=== PATIENT | female | born 1975 | race Caucasian/White ===

== ENCOUNTER 2018-05-31 01:42 | Inpatient (IN) | payer OTHER ==
[2018-05-31] MEDS ORDERED: NACL 0.9% 3 ML SYG IV (02:30)
[2018-05-31] MEDS ORDERED: ONDANSETRON 4 MG INJ IV ×2 (02:30→13:30)
[2018-05-31] MEDS: DEXTROSE 5%-0.45% NACL 1,000 ML IV ×3 (02:58→18:58)
[2018-05-31] MEDS: CEPASTAT LOZENGE MT ×2 (03:15→20:11)
[2018-05-31 05:34] LABS: BASOPHILS % 0.5 % (0.0-2.0); EOSINOPHILS % 0.3 % (0.0-7.0); HEMATOCRIT 37.1 % (37.0-47.0); HEMOGLOBIN 12.2 g/dl (12.0-16.0); LYMPHOCYTES % 15.9 % (15.0-51.0); MEAN CORPUSCULAR HEMOGLOBIN 28.8 pg (29.0-33.0); MEAN CORPUSCULAR HGB CONC 32.9 g/dl (32.0-37.0); MEAN CORPUSCULAR VOLUME 87.5 fl (82.0-101.0); MEAN PLATELET VOLUME 10.7 fl (7.4-10.4); MONOCYTE # 0.8 10^3/ul (0.3-0.9); MONOCYTES % 11.9 % (0.0-11.0); NEUTROPHIL # 4.6 10^3/ul (1.6-7.5); NEUTROPHILS % 70.6 % (39.0-77.0); PLATELET COUNT 201 10^3/UL (140-415); RED BLOOD COUNT 4.24 10^6/ul (4.20-5.40); RED CELL DISTRIBUTION WIDTH 13.1 % (11.5-14.5)
[2018-05-31 05:34] LABS: WHITE BLOOD COUNT 6.5 10^3/ul (4.8-10.8)
[2018-05-31 05:35] LABS: ADD MAN DIFF? NO
[2018-05-31 06:06] LABS: ALANINE AMINOTRANSFERASE 26 IU/L (13-69); ALBUMIN 3.7 g/dl (3.3-4.9); ALBUMIN/GLOBULIN RATIO 1.27; ALKALINE PHOSPHATASE 51 IU/L (42-121); ANION GAP 9 (5-13); ASPARTATE AMINO TRANSFERASE 22 IU/L (15-46); BILIRUBIN,INDIRECT 0.2 mg/dl (0-1.1); BILIRUBIN,TOTAL 0.2 mg/dl (0.2-1.3); BLOOD UREA NITROGEN 7 mg/dl (7-20); CALCIUM 8.4 mg/dl (8.4-10.2); CARBON DIOXIDE 27 mmol/L (21-31); CHLORIDE 102 mmol/L (97-110); CREATININE 0.55 mg/dl (0.44-1.00); Estimated GFR > 60 mL/min (>60); GLUCOSE 121 mg/dl (70-220); LIPASE 266 U/L (23-300); POTASSIUM 3.8 mmol/L (3.5-5.1); SODIUM 138 mmol/L (135-144); TOTAL PROTEIN 6.6 g/dl (6.1-8.1)
[2018-05-31] MEDS: ACETAMINOPHEN 325 MG TAB PO (06:54)
[2018-05-31] MEDS: PHENOL 1.4% SOLN 180 ML BTL MT ×2 (07:33→20:08)
[2018-05-31] MEDS: LEVOFLOXACIN 500MG/D5W (PMX) 100 ML IVPB (08:33)
[2018-05-31] MEDS: FAMOTIDINE 20 MG INJ IV (08:33)
[2018-05-31 11:00] LABS: ADD UMIC NO; UR ASCORBIC ACID NEGATIVE (NEGATIVE); UR BILIRUBIN (Dip) NEGATIVE (NEGATIVE); UR BLOOD (Dip) NEGATIVE (NEGATIVE); UR CLARITY CLEAR (CLEAR); UR COLOR STRAW (YELLOW); UR GLUCOSE (Dip) NEGATIVE (NEGATIVE); UR KETONES (Dip) NEGATIVE (NEGATIVE); UR LEUKOCYTE ESTERASE (Dip) NEGATIVE Leu/ul (NEGATIVE); UR NITRITE (Dip) NEGATIVE (NEGATIVE); UR SPECIFIC GRAVITY (Dip) 1.003 (1.003-1.030); UR TOTAL PROTEIN (Dip) NEGATIVE (NEGATIVE); UR UROBILINOGEN (Dip) NEGATIVE (NEGATIVE)
[2018-05-31] MEDS: morphine 2 MG INJ IV (20:07)
[2018-05-31] MEDS: FAMOTIDINE 20 MG TAB PO (20:07)
[2018-06-01] MEDS: DEXTROSE 5%-0.45% NACL 1,000 ML IV ×3 (03:18→19:23)
[2018-06-01] MEDS: morphine 2 MG INJ IV ×4 (04:34→22:47)
[2018-06-01 05:30] LABS: ADD MAN DIFF? NO
[2018-06-01 05:45] LABS: WHITE BLOOD COUNT 6.6 10^3/ul (4.8-10.8)
[2018-06-01 05:45] LABS: BASOPHILS % 0.6 % (0.0-2.0); EOSINOPHILS # 0.1 10^3/ul (0.0-0.5); EOSINOPHILS % 0.8 % (0.0-7.0); HEMOGLOBIN 12.3 g/dl (12.0-16.0); LYMPHOCYTES # 1.6 10^3/ul (0.8-2.9); LYMPHOCYTES % 24.6 % (15.0-51.0); MEAN CORPUSCULAR HEMOGLOBIN 28.6 pg (29.0-33.0); MEAN CORPUSCULAR HGB CONC 32.4 g/dl (32.0-37.0); MEAN CORPUSCULAR VOLUME 88.4 fl (82.0-101.0); MEAN PLATELET VOLUME 10.8 fl (7.4-10.4); MONOCYTE # 0.7 10^3/ul (0.3-0.9); MONOCYTES % 10.3 % (0.0-11.0); NEUTROPHIL # 4.2 10^3/ul (1.6-7.5); NEUTROPHILS % 63.2 % (39.0-77.0); PLATELET COUNT 207 10^3/UL (140-415); RED CELL DISTRIBUTION WIDTH 13.1 % (11.5-14.5)
[2018-06-01 05:49] LABS: ALANINE AMINOTRANSFERASE 19 IU/L (13-69); ALBUMIN 3.7 g/dl (3.3-4.9); ALBUMIN/GLOBULIN RATIO 1.19; ALKALINE PHOSPHATASE 54 IU/L (42-121); ANION GAP 8 (5-13); ASPARTATE AMINO TRANSFERASE 20 IU/L (15-46); BILIRUBIN,INDIRECT 0.3 mg/dl (0-1.1); BILIRUBIN,TOTAL 0.3 mg/dl (0.2-1.3); BLOOD UREA NITROGEN 7 mg/dl (7-20); CALCIUM 8.9 mg/dl (8.4-10.2); CARBON DIOXIDE 25 mmol/L (21-31); CHLORIDE 105 mmol/L (97-110); CHOL/HDL RATIO 2.4 RATIO; CHOLESTEROL 120 mg/dl (100-200); CREATININE 0.55 mg/dl (0.44-1.00); Estimated GFR > 60 mL/min (>60); GLUCOSE 118 mg/dl (70-220); HDL CHOLESTEROL 49 mg/dl (34-88); LDL CHOLESTEROL,CALCULATED 61 mg/dl; SODIUM 138 mmol/L (135-144); TOTAL PROTEIN 6.8 g/dl (6.1-8.1); TRIGLYCERIDES 52 mg/dl (0-149)
[2018-06-01 05:51] LABS: LIPASE 73 U/L (23-300)
[2018-06-01 05:56] LABS: HEMOGLOBIN A1C 5.3 % (0-5.9)
[2018-06-01 06:00] LABS: INR 0.89; PROTIME 12.2 Sec (11.9-14.9)
[2018-06-01 06:22] LABS: MAGNESIUM 2.1 mg/dl (1.7-2.5)
[2018-06-01] MEDS: LEVOFLOXACIN 500MG/D5W (PMX) 100 ML IVPB (08:00)
[2018-06-01] MEDS: FAMOTIDINE 20 MG TAB PO ×2 (08:37→21:31)
[2018-06-02] MEDS: morphine 2 MG INJ IV ×2 (03:20→08:49)
[2018-06-02] MEDS: DEXTROSE 5%-0.45% NACL 1,000 ML IV ×2 (04:08→04:18)
[2018-06-02] MEDS: FAMOTIDINE 20 MG TAB PO (08:48)
[2018-06-02] MEDS: LEVOFLOXACIN 500MG/D5W (PMX) 100 ML IVPB (08:48)
[2018-06-02] MEDS: ACETAMINOPHEN 325 MG TAB PO (10:46)
[2018-06-02] MEDS: POLYETHYLENE GLYCOL 17 GM PACKET PO (17:01)
== END 2018-06-02 17:30 | disposition home or self-care (01) | DRG 446 ==
LOC: MS1 01:42
PROVIDERS: Internal Medicine
DX: K80.12 Calculus of gallbladder with acute and chronic cholecystitis without obstruction (principal); Z87.891 Personal history of nicotine dependence; J02.9 Acute pharyngitis, unspecified; E66.9 Obesity, unspecified; Z68.32 Body mass index [BMI] 32.0-32.9, adult; Z90.79 Acquired absence of other genital organ(s); K29.70 Gastritis, unspecified, without bleeding; T62.91XA Toxic effect of unspecified noxious substance eaten as food, accidental (unintentional), initial encounter; Z90.721 Acquired absence of ovaries, unilateral; K52.9 Noninfective gastroenteritis and colitis, unspecified
CPT/HCPCS: 71046; 76705; 78226; 80053; 80061; 81003; 83036; 83690; 83735; 84100; 84443; 84703; 85025; 85610; 87040-91; 87070; 87086; 93005